=== PATIENT | female | born 2000 | race Two or more races ===

== ENCOUNTER 2025-10-20 12:37 | Emergency (ER) | payer OTHER ==
[~2025-10-20] VITALS: Ht 165.1 cm; Wt 77.1 kg
[2025-10-20 13:47] VITALS: BP 128/84; TEMP 98.2; O2SAT 98
== END 2025-10-20 13:48 | disposition home or self-care (01) ==
LOC: ER 12:37
DX: F43.21 Adjustment disorder with depressed mood (principal); F32.9 Major depressive disorder, single episode, unspecified